=== PATIENT | male | born 1980 | race Caucasian/White ===

== ENCOUNTER 2024-05-24 06:20 | Day surgery (SDC) | payer BC ==
[2024-05-18 12:51] VITALS: BMI 25.0
[~2024-05-24 06:20] MED LIST: LIDOCAINE 1% (10MG/ML) FOR IV START INTRADERMA PRN
[2024-05-24 07:04] VITALS: RESP 16; TEMP 98.1
[2024-05-24] MEDS: LACTATED RINGERS 1,000 ML IV SCH (07:11)
[2024-05-24] MEDS: IV FLUID CONTINUATION 1,000 ML IV ONE (07:12)
[2024-05-24] MEDS ORDERED: LIDOCAINE 1% INJ 10MG/ML (20 ML MDV) ONE (07:22)
[2024-05-24] MEDS ORDERED: PROPOFOL 10 MG/ML 20 ML VIAL IV ONE (07:22)
--- NOTE | 2024-05-24 07:53 | P.PCN ---
Date of Procedure: 05/24/24 Procedure(s) Performed: Brief history: Patient is a pleasant 43-year-old white male scheduled for an elective upper endoscopy as well as colonoscopy as a part of evaluation of longstanding history of GERD/intermittent dysphagia to solids and screening for colon cancer. He has family history of colon cancer diagnosed in his grandmother at age 60. Procedure performed: Esophagogastroduodenoscopy with biopsy Colonoscopy Preoperative diagnosis: GERD/intermittent dysphagia to solids Screening for colon cancer and family history of colon cancer Anesthesia: MAC Procedure: After informed consent was obtained from the patient was brought into the endoscopy unit and IV sedation was administered by anesthesia under continuous monitoring. Initially upper endoscopy was done. The Olympus GF 160 video endoscope was inserted inserted into the mouth and esophagus intubated without any difficulty and was gradually advanced into the stomach and duodenum and carefully examined. The bulb and second part of the duodenum appeared normal. The scope was then withdrawn into the stomach adequately insufflated with air and upon careful examination the antrum and body had diffuse gastritis and biopsies were done from this area. Mucosa of the, cardia and fundus appeared normal. The scope was then withdrawn into the esophagus. The GE junction was located at 40 cm to the incisors. It appeared regular with no erythema erosions or ulcerations. Rest of the esophagus appeared normal. There was no evidence of esophageal stricture. Multiple biopsies were done from mid and distal esophagus rule out eosinophilic esophagitis patient tolerated the procedure well. At this time the patient continued to remain sedation. Initial digital rectal examination was normal. Olympus CF 160 video colonoscope was then inserted into the rectum and gradually advanced to the cecum without any difficulty. Careful examination was performed as the scope was gradually being withdrawn. The prep was fair. The cecum, ascending colon, transverse colon, descending colon, sigmoid colon and rectum appeared normal. Retroflexion was performed in the rectum and no lesions were noted. Patient tolerated the procedure well. Impression: 1. Upper endoscopy revealed Fuhs gastritis involving the antrum and body of the stomach, no evidence of esophagitis or esophageal stricture 2. Colonoscopy was within normal limits with no evidence of colorectal neoplasia Recommendations: Findings of this examination were discussed with the patient as well as his family. He was advised to follow with the biopsy results. Trial of omeprazole 20 mg daily and he was briefly educated about antireflux measures. Recommended repeat screening colonoscopy in 10 years.
[2024-05-24 08:20] VITALS: BP 139/73; PULSE 71
== END 2024-05-24 08:42 | disposition home or self-care (01) ==
LOC: ORWHC2ENDO 06:20
PROVIDERS: ATTEND Internal Medicine Gastroenterology
DX: Z12.11 Encounter for screening for malignant neoplasm of colon (principal); K21.00 Gastro-esophageal reflux disease with esophagitis, without bleeding; K29.50 Unspecified chronic gastritis without bleeding; Z80.0 Family history of malignant neoplasm of digestive organs; Z79.899 Other long term (current) drug therapy
CPT/HCPCS: 43239; 45378; 88305